=== PATIENT | female | born 1940 | race Caucasian/White ===

== ENCOUNTER → 2017-08-08 | Outpatient (CLI) | payer MEDICARE, BC ==
[2014-12-10 08:55] VITALS: BP 156/70
[~2017-08-08] MED LIST: ACYC200C PO; CLON0.5T3 PO; ESTR0.5T PO; FERR-36 PO; MULT-18 PO; OMEG500C3 PO; OMEP40CA5 PO
--- NOTE | 2017-08-08 14:29 | KCIC ---
INDICATION: Low back pain and right leg pain. Symptoms are chronic. TECHNIQUE: Sagittal T1, sagittal T2, sagittal STIR, axial T1, and axial T2 sequences are provided. Comparison is from November 22, 2016. FINDINGS: There is no malalignment. 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 There is no worrisome marrow lesion. There is no marrow edema. There is diffuse disc desiccation. There is narrowing of disc height at L3-L4 and L4-L5 most notably. The conus medullaris is normal in signal intensity and in position. The numbering system assumes 5 lumbar type vertebral bodies. Findings by individual level are as follows: L1-L2: There is a minimal disc bulge without canal or foraminal compromise. L2-L3: There is a minimal disc bulge and ligamentum flavum hypertrophy without canal or foraminal compromise. L3-L4: There is a diffuse disc bulge. There is a broad-based protrusion on the left centered subarticular. There is mild canal stenosis with midline AP diameter of the thecal sac 9 mm. There is left lateral recess narrowing. There is mild foraminal narrowing. L4-L5: There is a diffuse disc bulge. There is a superimposed central herniation measuring 16 mm at its base and 5 mm in height. There is moderate facet and ligamentum flavum hypertrophy. There is moderate to severe canal stenosis with midline AP diameter of the thecal sac 6 mm. There is minimal CSF surrounding the nerve roots at this level. There is lateral recess narrowing bilaterally which is high-grade. Foraminal narrowing is minimal. L5-S1: Disc bulge and facet hypertrophy are noted without any canal or foraminal compromise. IMPRESSION: Degenerative disc disease and facet and ligamentum flavum hypertrophy remain most notable at L4-L5 where there is moderate to severe canal stenosis and lateral recess narrowing bilaterally. Electronically signed by: Joe Anderson MD (08/08/2017 2:26 PM) [id number]
== END | disposition home or self-care (01) ==
LOC: KCIC MRI 13:31
PROVIDERS: ATTEND Nurse Practitioner Family
DX: M51.36 Other intervertebral disc degeneration, lumbar region (principal); M48.06 Spinal stenosis, lumbar region
CPT/HCPCS: 72148

== ENCOUNTER 2018-05-28 13:20 | Emergency (ER) | payer MEDICARE, BC ==
[2018-05-28] MEDS: methylPREDNISolone SOD SUCC PF 125 MG/2 ML VIAL. IV (14:09)
[2018-05-28] MEDS: MORPHINE SULFATE 4 MG/ML DISP.SYRIN. IV (14:11)
[2018-05-28] MEDS: diazePAM 5 MG TABLET PO (14:13)
== END 2018-05-28 15:24 | disposition home or self-care (01) ==
LOC: ER 13:20
DX: K57.90 Diverticulosis of intestine, part unspecified, without perforation or abscess without bleeding (principal); N28.1 Cyst of kidney, acquired; N20.0 Calculus of kidney; M48.061 Spinal stenosis, lumbar region without neurogenic claudication; Z90.710 Acquired absence of both cervix and uterus; Z88.0 Allergy status to penicillin; Z88.1 Allergy status to other antibiotic agents
CPT/HCPCS: 74176; 96374; 96375; 99284-25; J2270; J2930

== ENCOUNTER → 2018-07-04 | Outpatient (CLI) | payer MEDICARE, BC | END | disposition home or self-care (01) | LOC: KCIC MRI 12:45 | DX: M51.26 Other intervertebral disc displacement, lumbar region (principal); M48.061 Spinal stenosis, lumbar region without neurogenic claudication; M12.88 Other specific arthropathies, not elsewhere classified, other specified site; I25.2 Old myocardial infarction; Z88.0 Allergy status to penicillin; Z88.1 Allergy status to other antibiotic agents; Z90.710 Acquired absence of both cervix and uterus | CPT/HCPCS: 72148 ==